=== PATIENT | female | born 1945 | race Caucasian/White ===

== ENCOUNTER → 2017-02-26 | Outpatient (CLI) | payer MEDICARE ==
[2017-02-26 14:03] LABS: Alanine Aminotransfer (ALT/SGP 17 U/L (12-78); Albumin, Blood 3.9 g/dL (3.4-5.0); Alk Phos 111 U/L (50-136); Anion Gap 6 mmol/L (6-16); Aspartate Aminotrans (AST/SGOT 17 U/L (12-37); Bilirubin, Total 0.4 mg/dL (0.1-1.0); Blood Urea Nitrogen 14 mg/dL (8-24); Bun/Creatinine Ratio 25.9 (12.0-20.0); CO2, Blood 29 mmol/L (21-32); Calcium, Blood 9.4 mg/dL (8.5-10.1); Chloride, Blood 105 mmol/L (98-108); Creatinine, Blood 0.54 mg/dL (0.40-1.00); Glomerular Filtration Rate >60 (60-); Glucose, Blood 104 mg/dL (70-99); Potassium, Blood 4.3 mmol/L (3.5-5.5); Sodium, Blood 140 mmol/L (136-145); Total Protein, Blood 7.9 g/dL (6.4-8.2)
[2017-02-26 14:05] LABS: Hematocrit 46.4 % (33.0-51.0); Hemoglobin 15.1 g/dL (11.5-16.0); Mean Corpuscular HGB 30.4 pg (26.0-34.0); Mean Corpuscular HGB Conc 32.5 g/dL (31.5-36.5); Mean Corpuscular Volume 94 fL (80-100); Mean Platelet Volume 10.6 fL (9.1-12.4); Platelet Count 269 K/mm3 (150-400); RDW Coefficient Variation 13.1 % (11.7-14.2); RDW Standard Deviation 44.4 fL (35.1-46.3); Red Blood Cell Count 4.96 M/mm3 (3.80-5.20); White Blood Cell Count 6.97 K/mm3 (4.00-11.30)
== END | disposition home or self-care (01) ==
LOC: LAB 13:36
DX: R60.0 Localized edema (principal)
CPT/HCPCS: 80053; 83880; 85027

== ENCOUNTER 2020-02-03 00:47 | Day surgery (SDC) | payer MEDICARE | END 2020-02-03 23:18 | disposition home or self-care (01) | LOC: WOUND 00:47 | DX: I96 Gangrene, not elsewhere classified (principal); L97.812 Non-pressure chronic ulcer of other part of right lower leg with fat layer exposed; J44.9 Chronic obstructive pulmonary disease, unspecified; I10 Essential (primary) hypertension; J32.9 Chronic sinusitis, unspecified; H74.90 Unspecified disorder of middle ear and mastoid, unspecified ear; D64.9 Anemia, unspecified; G62.9 Polyneuropathy, unspecified; Z88.5 Allergy status to narcotic agent; Z87.891 Personal history of nicotine dependence; Z88.1 Allergy status to other antibiotic agents | CPT/HCPCS: G0463 ==

== ENCOUNTER 2020-02-07 00:56 | Day surgery (SDC) | payer MEDICARE | END 2020-02-07 23:00 | disposition home or self-care (01) | LOC: WOUND 00:56 | DX: S81.801A Unspecified open wound, right lower leg, initial encounter (principal); I96 Gangrene, not elsewhere classified; L97.812 Non-pressure chronic ulcer of other part of right lower leg with fat layer exposed; L03.115 Cellulitis of right lower limb; I87.2 Venous insufficiency (chronic) (peripheral); H74.90 Unspecified disorder of middle ear and mastoid, unspecified ear; D64.9 Anemia, unspecified; J44.9 Chronic obstructive pulmonary disease, unspecified; I10 Essential (primary) hypertension; G62.9 Polyneuropathy, unspecified; Z79.2 Long term (current) use of antibiotics; W01.0XXA Fall on same level from slipping, tripping and stumbling without subsequent striking against object, initial encounter | CPT/HCPCS: 87070; 87075; 87205 ==

== ENCOUNTER 2020-02-14 00:34 | Day surgery (SDC) | payer MEDICARE | END 2020-02-14 22:54 | disposition home or self-care (01) | LOC: WOUND 00:34 | DX: S81.801A Unspecified open wound, right lower leg, initial encounter (principal); I96 Gangrene, not elsewhere classified; L97.812 Non-pressure chronic ulcer of other part of right lower leg with fat layer exposed; I87.2 Venous insufficiency (chronic) (peripheral); L03.115 Cellulitis of right lower limb; J44.9 Chronic obstructive pulmonary disease, unspecified; I10 Essential (primary) hypertension; H74.90 Unspecified disorder of middle ear and mastoid, unspecified ear; D64.9 Anemia, unspecified; G62.9 Polyneuropathy, unspecified; Z79.2 Long term (current) use of antibiotics; Z88.1 Allergy status to other antibiotic agents; Z88.5 Allergy status to narcotic agent; W18.40XA Slipping, tripping and stumbling without falling, unspecified, initial encounter | CPT/HCPCS: 87070; 87075; 87205; G0463 ==

== ENCOUNTER 2020-02-21 00:43 | Day surgery (SDC) | payer MEDICARE | END 2020-02-21 22:47 | disposition home or self-care (01) | LOC: WOUND 00:43 | DX: L97.915 Non-pressure chronic ulcer of unspecified part of right lower leg with muscle involvement without evidence of necrosis (principal); I87.2 Venous insufficiency (chronic) (peripheral); L03.115 Cellulitis of right lower limb; I73.9 Peripheral vascular disease, unspecified; I10 Essential (primary) hypertension; J44.9 Chronic obstructive pulmonary disease, unspecified; D64.9 Anemia, unspecified; I73.00 Raynaud's syndrome without gangrene; G62.9 Polyneuropathy, unspecified ==

== ENCOUNTER 2020-02-28 00:49 | Day surgery (SDC) | payer MEDICARE | END 2020-02-28 22:46 | disposition home or self-care (01) | LOC: WOUND 00:49 | DX: L97.815 Non-pressure chronic ulcer of other part of right lower leg with muscle involvement without evidence of necrosis (principal); I87.2 Venous insufficiency (chronic) (peripheral); I73.9 Peripheral vascular disease, unspecified; L03.115 Cellulitis of right lower limb; I10 Essential (primary) hypertension; J44.9 Chronic obstructive pulmonary disease, unspecified; I73.00 Raynaud's syndrome without gangrene; G62.9 Polyneuropathy, unspecified | CPT/HCPCS: A9270 ==

== ENCOUNTER 2020-03-08 01:34 | Day surgery (SDC) | payer MEDICARE | END 2020-03-08 22:36 | disposition home or self-care (01) | LOC: WOUND 01:34 | DX: L97.915 Non-pressure chronic ulcer of unspecified part of right lower leg with muscle involvement without evidence of necrosis (principal); I87.2 Venous insufficiency (chronic) (peripheral); I73.9 Peripheral vascular disease, unspecified; L03.115 Cellulitis of right lower limb | CPT/HCPCS: 87071; 87075; 87205; A9270 ==

== ENCOUNTER 2020-03-15 00:29 | Day surgery (SDC) | payer MEDICARE | END 2020-03-15 23:23 | disposition home or self-care (01) | LOC: WOUND 00:29 | DX: L97.812 Non-pressure chronic ulcer of other part of right lower leg with fat layer exposed (principal); L03.115 Cellulitis of right lower limb; I87.2 Venous insufficiency (chronic) (peripheral); I73.9 Peripheral vascular disease, unspecified; J44.9 Chronic obstructive pulmonary disease, unspecified; I10 Essential (primary) hypertension; G62.9 Polyneuropathy, unspecified | CPT/HCPCS: A9270 ==

== ENCOUNTER 2020-03-23 02:21 | Day surgery (SDC) | payer MEDICARE | END 2020-03-23 23:45 | disposition home or self-care (01) | LOC: WOUND 02:21 | DX: L97.812 Non-pressure chronic ulcer of other part of right lower leg with fat layer exposed (principal); I87.2 Venous insufficiency (chronic) (peripheral); I73.9 Peripheral vascular disease, unspecified; L03.115 Cellulitis of right lower limb | CPT/HCPCS: A9270 ==

== ENCOUNTER 2020-03-30 02:31 | Day surgery (SDC) | payer MEDICARE | END 2020-03-30 22:41 | disposition home or self-care (01) | LOC: WOUND 02:31 | DX: L97.812 Non-pressure chronic ulcer of other part of right lower leg with fat layer exposed (principal); I87.2 Venous insufficiency (chronic) (peripheral); I73.9 Peripheral vascular disease, unspecified; L03.115 Cellulitis of right lower limb; I10 Essential (primary) hypertension | CPT/HCPCS: A9270 ==

== ENCOUNTER 2020-04-02 09:00 | Day surgery (SDC) | payer MEDICARE | END 2020-04-02 23:56 | disposition home or self-care (01) | LOC: WOUND 09:00 | DX: L97.915 Non-pressure chronic ulcer of unspecified part of right lower leg with muscle involvement without evidence of necrosis (principal); I87.2 Venous insufficiency (chronic) (peripheral); I73.9 Peripheral vascular disease, unspecified; L03.115 Cellulitis of right lower limb; I10 Essential (primary) hypertension ==

== ENCOUNTER 2020-04-06 00:51 | Day surgery (SDC) | payer MEDICARE | END 2020-04-06 23:50 | disposition home or self-care (01) | LOC: WOUND 00:51 | DX: L97.922 Non-pressure chronic ulcer of unspecified part of left lower leg with fat layer exposed (principal); I73.9 Peripheral vascular disease, unspecified; I87.2 Venous insufficiency (chronic) (peripheral); D64.9 Anemia, unspecified; J44.9 Chronic obstructive pulmonary disease, unspecified; I10 Essential (primary) hypertension; I73.00 Raynaud's syndrome without gangrene | CPT/HCPCS: A9270 ==

== ENCOUNTER 2020-04-13 01:56 | Day surgery (SDC) | payer MEDICARE | END 2020-04-13 22:42 | disposition home or self-care (01) | LOC: WOUND 01:56 | DX: L97.915 Non-pressure chronic ulcer of unspecified part of right lower leg with muscle involvement without evidence of necrosis (principal); L03.115 Cellulitis of right lower limb; I87.2 Venous insufficiency (chronic) (peripheral); I73.9 Peripheral vascular disease, unspecified; J44.9 Chronic obstructive pulmonary disease, unspecified; R03.0 Elevated blood-pressure reading, without diagnosis of hypertension | CPT/HCPCS: A9270 ==

== ENCOUNTER 2020-04-20 01:11 | Day surgery (SDC) | payer MEDICARE | END 2020-04-20 22:45 | disposition home or self-care (01) | LOC: WOUND 01:11 | DX: L97.915 Non-pressure chronic ulcer of unspecified part of right lower leg with muscle involvement without evidence of necrosis (principal); L03.115 Cellulitis of right lower limb; I87.2 Venous insufficiency (chronic) (peripheral); I73.9 Peripheral vascular disease, unspecified; J44.9 Chronic obstructive pulmonary disease, unspecified; R03.0 Elevated blood-pressure reading, without diagnosis of hypertension; R21 Rash and other nonspecific skin eruption; Z88.1 Allergy status to other antibiotic agents | CPT/HCPCS: A9270 ==

== ENCOUNTER 2020-04-27 01:00 | Day surgery (SDC) | payer MEDICARE | END 2020-04-27 23:05 | disposition home or self-care (01) | LOC: WOUND 01:00 | DX: L97.815 Non-pressure chronic ulcer of other part of right lower leg with muscle involvement without evidence of necrosis (principal); I87.2 Venous insufficiency (chronic) (peripheral); I73.9 Peripheral vascular disease, unspecified; L03.115 Cellulitis of right lower limb; J44.9 Chronic obstructive pulmonary disease, unspecified; I10 Essential (primary) hypertension | CPT/HCPCS: A9270 ==

== ENCOUNTER 2020-05-04 00:41 | Day surgery (SDC) | payer MEDICARE | END 2020-05-04 22:41 | disposition home or self-care (01) | LOC: WOUND 00:41 | DX: L97.915 Non-pressure chronic ulcer of unspecified part of right lower leg with muscle involvement without evidence of necrosis (principal); I87.2 Venous insufficiency (chronic) (peripheral); I73.9 Peripheral vascular disease, unspecified; L03.115 Cellulitis of right lower limb; J44.9 Chronic obstructive pulmonary disease, unspecified; R03.0 Elevated blood-pressure reading, without diagnosis of hypertension | CPT/HCPCS: A9270 ==

== ENCOUNTER 2020-05-10 00:18 | Day surgery (SDC) | payer MEDICARE | END 2020-05-10 23:33 | disposition home or self-care (01) | LOC: WOUND 00:18 | DX: L97.915 Non-pressure chronic ulcer of unspecified part of right lower leg with muscle involvement without evidence of necrosis (principal); I87.2 Venous insufficiency (chronic) (peripheral); I73.9 Peripheral vascular disease, unspecified; L03.115 Cellulitis of right lower limb; J44.9 Chronic obstructive pulmonary disease, unspecified; I10 Essential (primary) hypertension ==

== ENCOUNTER 2020-05-18 00:35 | Day surgery (SDC) | payer MEDICARE | END 2020-05-18 22:48 | disposition home or self-care (01) | LOC: WOUND 00:35 | DX: L97.815 Non-pressure chronic ulcer of other part of right lower leg with muscle involvement without evidence of necrosis (principal); L03.115 Cellulitis of right lower limb; I87.2 Venous insufficiency (chronic) (peripheral); I73.9 Peripheral vascular disease, unspecified; J44.9 Chronic obstructive pulmonary disease, unspecified; I10 Essential (primary) hypertension | CPT/HCPCS: A9270 ==

== ENCOUNTER 2020-06-01 00:55 | Day surgery (SDC) | payer MEDICARE | END 2020-06-01 23:07 | disposition home or self-care (01) | LOC: WOUND 00:55 | DX: L97.915 Non-pressure chronic ulcer of unspecified part of right lower leg with muscle involvement without evidence of necrosis (principal); I87.2 Venous insufficiency (chronic) (peripheral); I73.9 Peripheral vascular disease, unspecified; L03.115 Cellulitis of right lower limb; J44.9 Chronic obstructive pulmonary disease, unspecified; R03.0 Elevated blood-pressure reading, without diagnosis of hypertension | CPT/HCPCS: A9270 ==

== ENCOUNTER 2020-06-15 01:19 | Day surgery (SDC) | payer MEDICARE | END 2020-06-15 22:36 | disposition home or self-care (01) | LOC: WOUND 01:19 | DX: L97.915 Non-pressure chronic ulcer of unspecified part of right lower leg with muscle involvement without evidence of necrosis (principal); I87.2 Venous insufficiency (chronic) (peripheral); I73.9 Peripheral vascular disease, unspecified; J44.9 Chronic obstructive pulmonary disease, unspecified; I10 Essential (primary) hypertension; I73.00 Raynaud's syndrome without gangrene | CPT/HCPCS: A9270 ==

== ENCOUNTER 2020-06-22 02:10 | Day surgery (SDC) | payer MEDICARE | END 2020-06-22 23:04 | disposition home or self-care (01) | LOC: WOUND 02:10 | DX: S81.801A Unspecified open wound, right lower leg, initial encounter (principal); W10.9XXA Fall (on) (from) unspecified stairs and steps, initial encounter; L97.915 Non-pressure chronic ulcer of unspecified part of right lower leg with muscle involvement without evidence of necrosis; I87.2 Venous insufficiency (chronic) (peripheral); I73.9 Peripheral vascular disease, unspecified; I10 Essential (primary) hypertension; J44.9 Chronic obstructive pulmonary disease, unspecified | CPT/HCPCS: A9270 ==

== ENCOUNTER 2020-06-29 00:51 | Day surgery (SDC) | payer MEDICARE | END 2020-06-29 23:04 | disposition home or self-care (01) | LOC: WOUND 00:51 | DX: L97.915 Non-pressure chronic ulcer of unspecified part of right lower leg with muscle involvement without evidence of necrosis (principal); I87.2 Venous insufficiency (chronic) (peripheral); I73.9 Peripheral vascular disease, unspecified; S81.801D Unspecified open wound, right lower leg, subsequent encounter; X58.XXXD Exposure to other specified factors, subsequent encounter; J44.9 Chronic obstructive pulmonary disease, unspecified; I10 Essential (primary) hypertension | CPT/HCPCS: A9270 ==

== ENCOUNTER 2020-07-06 00:45 | Day surgery (SDC) | payer MEDICARE | END 2020-07-06 22:38 | disposition home or self-care (01) | LOC: WOUND 00:45 | DX: L03.115 Cellulitis of right lower limb (principal); L97.915 Non-pressure chronic ulcer of unspecified part of right lower leg with muscle involvement without evidence of necrosis; L97.912 Non-pressure chronic ulcer of unspecified part of right lower leg with fat layer exposed; I87.2 Venous insufficiency (chronic) (peripheral); I73.9 Peripheral vascular disease, unspecified; J44.9 Chronic obstructive pulmonary disease, unspecified; I10 Essential (primary) hypertension; E11.40 Type 2 diabetes mellitus with diabetic neuropathy, unspecified | CPT/HCPCS: A9270 ==

== ENCOUNTER 2020-07-13 00:58 | Day surgery (SDC) | payer MEDICARE | END 2020-07-13 23:09 | disposition home or self-care (01) | LOC: WOUND 00:58 | DX: L03.115 Cellulitis of right lower limb (principal); L97.812 Non-pressure chronic ulcer of other part of right lower leg with fat layer exposed; L97.815 Non-pressure chronic ulcer of other part of right lower leg with muscle involvement without evidence of necrosis; I73.9 Peripheral vascular disease, unspecified; I87.2 Venous insufficiency (chronic) (peripheral) | CPT/HCPCS: A9270 ==

== ENCOUNTER 2020-07-20 04:36 | Day surgery (SDC) | payer MEDICARE | END 2020-07-20 22:41 | disposition home or self-care (01) | LOC: WOUND 04:36 | DX: L97.812 Non-pressure chronic ulcer of other part of right lower leg with fat layer exposed (principal); L03.115 Cellulitis of right lower limb; I87.2 Venous insufficiency (chronic) (peripheral); I73.9 Peripheral vascular disease, unspecified; I73.00 Raynaud's syndrome without gangrene; G62.9 Polyneuropathy, unspecified; J44.9 Chronic obstructive pulmonary disease, unspecified; I10 Essential (primary) hypertension; Z88.1 Allergy status to other antibiotic agents; Z88.5 Allergy status to narcotic agent | CPT/HCPCS: A9270 ==

== ENCOUNTER 2020-07-27 04:22 | Day surgery (SDC) | payer MEDICARE | END 2020-07-28 00:32 | disposition home or self-care (01) | LOC: WOUND 04:22 | DX: L03.115 Cellulitis of right lower limb (principal); L97.915 Non-pressure chronic ulcer of unspecified part of right lower leg with muscle involvement without evidence of necrosis; L97.912 Non-pressure chronic ulcer of unspecified part of right lower leg with fat layer exposed; I87.2 Venous insufficiency (chronic) (peripheral); I73.9 Peripheral vascular disease, unspecified; I10 Essential (primary) hypertension; J44.9 Chronic obstructive pulmonary disease, unspecified | CPT/HCPCS: A9270 ==

== ENCOUNTER 2020-08-10 02:00 | Day surgery (SDC) | payer MEDICARE | END 2020-08-10 12:00 | disposition home or self-care (01) | LOC: WOUND 02:00 | DX: L97.915 Non-pressure chronic ulcer of unspecified part of right lower leg with muscle involvement without evidence of necrosis (principal); L97.912 Non-pressure chronic ulcer of unspecified part of right lower leg with fat layer exposed; L03.115 Cellulitis of right lower limb; I87.2 Venous insufficiency (chronic) (peripheral); I73.9 Peripheral vascular disease, unspecified | CPT/HCPCS: A9270; G0463 ==

== ENCOUNTER 2020-08-24 00:46 | Day surgery (SDC) | payer MEDICARE | END 2020-08-24 23:01 | disposition home or self-care (01) | LOC: WOUND 00:46 | DX: L97.915 Non-pressure chronic ulcer of unspecified part of right lower leg with muscle involvement without evidence of necrosis (principal); L97.912 Non-pressure chronic ulcer of unspecified part of right lower leg with fat layer exposed; L03.115 Cellulitis of right lower limb; I87.2 Venous insufficiency (chronic) (peripheral); I73.9 Peripheral vascular disease, unspecified; I10 Essential (primary) hypertension; J44.9 Chronic obstructive pulmonary disease, unspecified | CPT/HCPCS: A9270; G0463 ==

== ENCOUNTER 2020-09-07 01:51 | Day surgery (SDC) | payer MEDICARE | END 2020-09-07 12:00 | disposition home or self-care (01) | LOC: WOUND 01:51 | DX: L97.912 Non-pressure chronic ulcer of unspecified part of right lower leg with fat layer exposed (principal); I87.2 Venous insufficiency (chronic) (peripheral); I73.9 Peripheral vascular disease, unspecified; I10 Essential (primary) hypertension; J44.9 Chronic obstructive pulmonary disease, unspecified; Z88.1 Allergy status to other antibiotic agents; Z88.5 Allergy status to narcotic agent | CPT/HCPCS: G0463 ==

== ENCOUNTER 2023-08-22 16:46 | Inpatient (IN) | payer MEDICARE ==
[~2023-08-22] VITALS: Ht 162.6 cm; Wt 107.5 kg
[~2023-08-22 16:46] MED LIST: Sodium Zirconium Cyclosilicate 10 GM Packet PO SCH
[2023-08-22 17:00] LABS: BASOPHILS ABSOLUTE AUTO 0.06 K/mm3 (0.00-0.23); BASOPHILS PERCENT AUTO 0 % (0-2); EOSINOPHILS PERCENT AUTO 0 % (0-6); Hematocrit 50.9 % (33.0-51.0); Hemoglobin 17.3 g/dL (11.5-16.0); IMMATURE GRAN ABSOLUTE AUTO 0.54 K/mm3 (0.00-0.10); IMMATURE GRAN PERCENT AUTO 3 % (0-1); LYMPHOCYTES ABSOLUTE AUTO 0.26 K/mm3 (0.84-5.20); LYMPHOCYTES PERCENT AUTO 1 % (21-46); MONOCYTES ABSOLUTE AUTO 1.09 K/mm3 (0.16-1.47); MONOCYTES PERCENT AUTO 5 % (4-13); Mean Corpuscular HGB 30.2 pg (26.0-34.0); Mean Corpuscular Volume 89 fL (80-100); Mean Platelet Volume 10.2 fL (9.1-12.4); NEUTROPHILS ABSOLUTE AUTO 19.21 K/mm3 (1.96-9.15); NEUTROPHILS PERCENT AUTO 91 % (41-73); Platelet Count 258 K/mm3 (150-400); RDW Coefficient Variation 14.1 % (11.7-14.2); Red Blood Cell Count 5.72 M/mm3 (3.80-5.20); White Blood Cell Count 21.16 K/mm3 (4.00-11.30)
[2023-08-22] MEDS ORDERED: Diphth,Pertuss(Acell),Tet Vac 0.5 ML VIAL IM ONE (17:15)
[2023-08-22] MEDS ORDERED: NS 1,000 ML IV SCH ×2 (17:15→18:20)
[2023-08-22 17:22] LABS: Source, Urine Foley catheter
[2023-08-22 17:34] LABS: Bilirubin, Urine Neg (Neg); Blood, Urine Neg (Neg); Color, Urine Yellow (P-Yellow); Glucose Qualitative, Urine Neg (Neg); Ketones, Urine Neg (Neg); Leukocyte Esterase, Urine Neg (Neg); Nitrite, Urine Neg (Neg); Protein, Urine Neg (Neg); Urobilinogen, Urine NORM (Normal)
[2023-08-22 17:46] LABS: Albumin, Blood 2.6 g/dL (3.4-5.0); Albumin/Globulin Ratio 0.6 (0.8-1.8); Bilirubin, Total 0.5 mg/dL (0.1-1.0); Bun/Creatinine Ratio 61.7 (12.0-20.0); Creatinine, Blood 3.08 mg/dL (0.40-1.00); Globulin, Blood 4.4 g/dL (2.2-4.0); Potassium, Blood 7.3 mmol/L (3.5-5.5)
[2023-08-22 17:55] LABS: Appearance, Urine Hazy (Clear)
[2023-08-22 17:55] LABS: PCO2 Venous 40.3 mmHg (38-42); pH Blood Venous 7.25 (7.34-7.37)
[2023-08-22 17:56] LABS: Red Blood Cells, Urine 0-2 /hpf (0-2); White Blood Cells, Urine 0-2 /hpf (0-5)
[2023-08-22 17:56] LABS: Base Excess Venous -9.8 mmol/L; Bicarbonate Venous 16.9 mmol/L (24.0-30.0)
[2023-08-22 17:57] LABS: Amorphous Light (0-Heavy); Bacteria Mod /hpf; Mucus Light (0-Heavy); Squamous Epithelial Cells Few /hpf (Few)
[2023-08-22 18:33] LABS: U Amphetamine Screen Not Detected; U Barbituate Screen Not Detected; U Benzodiazapine Screen Not Detected; U Buprenorphine Screen Not Detected; U Cannabinoids Screen Not Detected; U Cocaine Screen Not Detected; U Methadone Screen Not Detected; U Methamphetamine Screen Not Detected; U Opiates Screen Not Detected; U Oxycodone Screen Not Detected; U Phencyclidine Screen Not Detected
[2023-08-22] MEDS ORDERED: Azithromycin 250 MG Tab PO ONE (18:35)
[2023-08-22 18:59] LABS: Magnesium, Blood 2.2 mg/dL (1.6-2.4)
[2023-08-22 19:00] LABS: Thyroid Stimulating Hormone 0.948 uIU/mL (0.360-4.800)
[2023-08-22] MEDS ORDERED: Acetaminophen 325 MG TABLET PO PRN (19:40)
[2023-08-22 19:43] LABS: Bun/Creatinine Ratio 67.2 (12.0-20.0); Creatinine, Blood 2.32 mg/dL (0.40-1.00)
[2023-08-22 19:44] LABS: Calcium, Blood 6.6 mg/dL (8.5-10.1); Potassium, Blood 5.1 mmol/L (3.5-5.5)
[2023-08-22] MEDS ORDERED: OxyCODONE HCL 5 MG TAB PO PRN (19:45)
[2023-08-22] MEDS ORDERED: Lactated Ringer's 1,000 ML IV SCH (19:45)
[2023-08-22] MEDS ORDERED: LevoFLOXacin 750 MG/D5W 150ML 150 ML IV SCH (19:55)
[2023-08-22] MEDS ORDERED: Albuterol 2.5 MG/3 ML VIAL INH PRN (20:00)
[2023-08-22] MEDS ORDERED: Sodium Chloride 0.45% 1,000 ML IV SCH (20:25)
[2023-08-22] MEDS ORDERED: Sennosides 8.6 MG Tab PO SCH (21:00)
[2023-08-22 21:24] LABS: Hematocrit 50.6 % (33.0-51.0); Hemoglobin 16.6 g/dL (11.5-16.0)
[2023-08-22 21:25] LABS: Adenovirus Not Detected (NOT DETECT); Bordetella pertussis Not Detected (NOT DETECT); Chlamydophila pneumoniae Not Detected (NOT DETECT); Coronavirus 229E Not Detected (NOT DETECT); Coronavirus HKU1 Not Detected (NOT DETECT); Coronavirus NL63 Not Detected (NOT DETECT); Coronavirus OC43 Not Detected (NOT DETECT); Human Metapneumovirus Not Detected (NOT DETECT); Human Rhinovirus/Enterovirus Detected (NOT DETECT); Influenza A/2009-H1 Not Detected (NOT DETECT); Influenza A/H1 Not Detected (NOT DETECT); Influenza A/H3 Not Detected (NOT DETECT); Influenza B Not Detected (NOT DETECT); Mycoplasma pneumoniae Not Detected (NOT DETECT); Parainfluenza Virus 1 Not Detected (NOT DETECT); Parainfluenza Virus 2 Not Detected (NOT DETECT); Parainfluenza Virus 3 Not Detected (NOT DETECT); Parainfluenza Virus 4 Not Detected (NOT DETECT); Respiratory Syncytial Virus Not Detected (NOT DETECT); SARS-Cov-2 (COVID-19), BioFire Not Detected (NOT DETECT)
[2023-08-22 21:25] LABS: Base Excess Venous -9.4 mmol/L; Bicarbonate Venous 16.7 mmol/L (24.0-30.0); PCO2 Venous 44.2 mmHg (38-42)
[2023-08-22 21:26] LABS: pH Blood Venous 7.22 (7.34-7.37)
[2023-08-22 21:53] VITALS: BP 108/54
[2023-08-22 22:06] LABS: Bun/Creatinine Ratio 62.6 (12.0-20.0); Creatinine, Blood 2.97 mg/dL (0.40-1.00); Potassium, Blood 6.7 mmol/L (3.5-5.5)
[2023-08-22 22:07] LABS: Calcium, Blood 8.9 mg/dL (8.5-10.1)
[2023-08-22] MEDS ORDERED: Sodium Bicarb 8.4% 1 MEQ/ML 50 ML Vial IV ONE ×2 (22:15→23:00)
[2023-08-22] MEDS ORDERED: Sodium Zirconium Cyclosilicate 10 GM Packet PO SCH (22:45)
[2023-08-22] MEDS ORDERED: CALCIUM GLUC IN NACL, ISO-OSM 50 ML IV ONE (22:50)
[2023-08-22] MEDS ORDERED: FentaNYL Citrate 50 MCG/ML 2 ML Injection IV PRN (22:50)
[2023-08-22] MEDS ORDERED: Insulin Regular 100 UNIT/ML 10ML Vial IV ONE (23:00)
[2023-08-22] MEDS ORDERED: Dextrose 50% 50 ML Syringe IV ONE (23:00)
[2023-08-22] MEDS ORDERED: Sodium Zirconium Cyclosilicate 10 GM Packet PO ONE (23:00)
[2023-08-22] MEDS ORDERED: Sodium Bicarb 8.4% Inj 100 MEQ in Sodium Chloride 0.45% 1,000 ML IV ONE (23:05)
[2023-08-22 23:28] VITALS: BP 102/55
[2023-08-22] MEDS ORDERED: Albumin (Human) 25gm/100ml 100 ML IV ONE (23:30)
[2023-08-22 23:45] LABS: Bun/Creatinine Ratio 61.7 (12.0-20.0); Calcium, Blood 8.9 mg/dL (8.5-10.1); Creatinine, Blood 2.95 mg/dL (0.40-1.00); Potassium, Blood 6.6 mmol/L (3.5-5.5)
[2023-08-23 00:41] LABS: Bicarbonate Venous 16.9 mmol/L (24.0-30.0); PCO2 Venous 51.2 mmHg (38-42); pH Blood Venous 7.19 (7.34-7.37)
[2023-08-23 00:42] LABS: Base Excess Venous -8.4 mmol/L
[2023-08-23 01:19] LABS: Bun/Creatinine Ratio 65.5 (12.0-20.0); Calcium, Blood 9.1 mg/dL (8.5-10.1); Creatinine, Blood 2.84 mg/dL (0.40-1.00); Potassium, Blood 6.5 mmol/L (3.5-5.5)
[2023-08-23 02:28] LABS: BASOPHILS ABSOLUTE AUTO 0.05 K/mm3 (0.00-0.23); BASOPHILS PERCENT AUTO 0 % (0-2); EOSINOPHILS ABSOLUTE AUTO 0.01 K/mm3 (0.00-0.68); EOSINOPHILS PERCENT AUTO 0 % (0-6); Hematocrit 45.9 % (33.0-51.0); Hemoglobin 15.5 g/dL (11.5-16.0); IMMATURE GRAN ABSOLUTE AUTO 0.58 K/mm3 (0.00-0.10); IMMATURE GRAN PERCENT AUTO 3 % (0-1); LYMPHOCYTES ABSOLUTE AUTO 0.57 K/mm3 (0.84-5.20); LYMPHOCYTES PERCENT AUTO 3 % (21-46); MONOCYTES ABSOLUTE AUTO 1.64 K/mm3 (0.16-1.47); MONOCYTES PERCENT AUTO 8 % (4-13); Mean Corpuscular HGB 30.5 pg (26.0-34.0); Mean Corpuscular HGB Conc 33.8 g/dL (31.5-36.5); Mean Corpuscular Volume 90 fL (80-100); Mean Platelet Volume 10.2 fL (9.1-12.4); NEUTROPHILS ABSOLUTE AUTO 17.05 K/mm3 (1.96-9.15); NEUTROPHILS PERCENT AUTO 86 % (41-73); Platelet Count 192 K/mm3 (150-400); RDW Standard Deviation 46.7 fL (35.1-46.3); Red Blood Cell Count 5.09 M/mm3 (3.80-5.20)
[2023-08-23 02:47] LABS: Magnesium, Blood 2.7 mg/dL (1.6-2.4)
[2023-08-23 03:13] LABS: Albumin/Globulin Ratio 0.8 (0.8-1.8); Bilirubin, Total 0.5 mg/dL (0.1-1.0); Calcium, Blood 8.9 mg/dL (8.5-10.1); Creatinine, Blood 2.74 mg/dL (0.40-1.00); Globulin, Blood 3.6 g/dL (2.2-4.0); Potassium, Blood 5.9 mmol/L (3.5-5.5); Total Protein, Blood 6.6 g/dL (6.4-8.2)
[2023-08-23 03:17] VITALS: BP 105/79
--- NOTE | 2023-08-23 04:38 | NUR ---
SHIFT SUMMARY SHIFT SUMMARY PT A&O X4, ABLE TO MAKE NEEDS KNOWN. PT IS UNMOTIVATED WITH CARE AND REQUIRES FREQUENT EDUCATION. SHE ARRIVED TO PCU 9 FROM ED AT APPROXIMATELY 2104. PT SLID TO HOSPITAL BED. WOUNDS TO BLE AND REDNESS OF GROIN. PICTURES TAKEN FOR CHART. PT WITH CRITICAL POTASSIUM AND VBG, ADMINISTERED INSULIN, D50, CALCIUM GLUCONATE, LOKELMA, AND BICARB DRIP PER EMAR. PT ON BIPAP DUE TO RESPIRATORY ACIDOSIS, SHE IS TOLERATING THIS WELL. VITALS HAVE BEEN STABLE, AFEBRILE, LUNGS DIMINISHED IN THE BASES, TELE SHOWS ST/SR WITH SHORT RUN OF SVT WITH HR IN 160'S THIS AM. PT DENIES CP OR SOB. BROOKS IN PLACE DRAINING YELLOW URINE TO GRAVITY. PT IS RESTING IN BED, CALL LIGHT IN REACH, BREATHING EVEN AND UNLABORED.
[2023-08-23 07:22] VITALS: BP 117/69
[2023-08-23 08:57] LABS: Bun/Creatinine Ratio 72.9 (12.0-20.0); Calcium, Blood 8.9 mg/dL (8.5-10.1); Creatinine, Blood 2.21 mg/dL (0.40-1.00); Potassium, Blood 5.6 mmol/L (3.5-5.5)
[2023-08-23] MEDS ORDERED: Heparin Sodium,Porcine 5,000 UNIT/0.5 ML SDV SC SCH (09:00)
[2023-08-23] MEDS ORDERED: NS 1,000 ML IV SCH ×2 (11:00→11:05)
[2023-08-23] MEDS ORDERED: NS 1,000 ML IV ONE (11:00)
[2023-08-23 11:35] VITALS: BP 116/79
[2023-08-23 13:21] LABS: pH Blood Venous 7.28 (7.34-7.37)
[2023-08-23 13:22] LABS: Bicarbonate Venous 12.4 mmol/L (24.0-30.0); PCO2 Venous 21.1 mmHg (38-42)
[2023-08-23 15:04] LABS: Hematocrit 43.3 % (33.0-51.0); Hemoglobin 14.4 g/dL (11.5-16.0)
[2023-08-23 15:24] LABS: Bun/Creatinine Ratio 71.2 (12.0-20.0); Calcium, Blood 8.2 mg/dL (8.5-10.1); Creatinine, Blood 1.91 mg/dL (0.40-1.00); Potassium, Blood 4.6 mmol/L (3.5-5.5)
[2023-08-23 16:22] VITALS: BP 124/72
--- NOTE | 2023-08-23 17:59 | NUR ---
SHIFT SUMMARY PATIENT ALERT, ORIENTED x3-4. PATIENT MORE ALERT AFTER FAMILY ARRIVED AT BEDSIDE. PATIENT WAS LETHARGIC THIS MORNING ON THE BIPAP BUT PATIENT HAS SINCE PERKED UP SINCE FAMILY ARRIVED. ON TELE READING ST, BP STABLE. RECTAL TEMP PLACED D/T LOW TEMPERATURE THIS MORNING, CORE TEMP LOW 96.6. PATIENT TOLERATING RA WHILE OFF BIPAP, SPO2 >90%. BROOKS IN PLACE DRAINING YELLOW URINE TO GRAVITY. PATIENT WITH CELLULITIS TO LOWER EXTRMITIES. PATIENT ATTEMPTED TO WORK WITH PT TODAY, PATIENT HAS THERAPY RECOMMENDATIONS AT BEDSIDE. TOLERATING PO. POWERGLIDE PLACED TODAY. NO OTHER CHANGES DURING THE DAY, WILL REPORT TO NETSUITE CONSULTANT RN.
[2023-08-23 19:18] VITALS: BP 119/55
[2023-08-23 20:32] LABS: pH Blood Venous 7.21 (7.34-7.37)
[2023-08-23 20:33] LABS: Base Excess Venous -2.4 mmol/L; Bicarbonate Venous 20.7 mmol/L (24.0-30.0); PCO2 Venous 63.1 mmHg (38-42)
--- NOTE | 2023-08-23 21:50 | NUR ---
ASSUMPTION OF CARE AFTER RECEIVING REPORT FROM DESTINY RN, THIS RN ASSUMED CARE AT APPROX 1915. PATIENT ALERT AND ORIENTED X3-4. IS [place]. PERRLA. MOVES ALL EXTREMITIES EQUALLY WITH WEAKNESS TO BLE. DENIES PAIN TO BLE WOUNDS OR ANYWHERE ELSE. TELEMETRY SHOWING SINUS 90s. BP STABLE. DENIES CHEST PAIN, PRESSURE. ON 3L VIA NC, SATs >90%. MD PIERRE CONTACTED TO DISCUSS NEED FOR REPEAT VBG DUE TO LITTLE PH CHANGE WITH BIPAP USE LAST NIGHT. POSSIBLE NEED TO ADJUST SETTINGS OF BIPAP. ORDERED, VBG OBTAINED - CRITICAL PH OF 7.21. MD PIERRE AWARE. PATIENT TOLERATING BIPAP, SATs >90%. BROOKS CATHETER IN PLACE DRAINING YELLOW URINE TO GRAVITY. CALL LIGHT IN REACH.
[2023-08-23 23:19] VITALS: BP 104/64
[2023-08-24] VITALS (35 sets, daily range): BP systolic 78–124; BP diastolic 44–94
[2023-08-24 03:46] LABS: BASOPHILS ABSOLUTE AUTO 0.02 K/mm3 (0.00-0.23); BASOPHILS PERCENT AUTO 0 % (0-2); EOSINOPHILS ABSOLUTE AUTO 0.07 K/mm3 (0.00-0.68); EOSINOPHILS PERCENT AUTO 1 % (0-6); Hematocrit 44.6 % (33.0-51.0); Hemoglobin 14.4 g/dL (11.5-16.0); IMMATURE GRAN ABSOLUTE AUTO 0.18 K/mm3 (0.00-0.10); IMMATURE GRAN PERCENT AUTO 1 % (0-1); LYMPHOCYTES ABSOLUTE AUTO 0.36 K/mm3 (0.84-5.20); LYMPHOCYTES PERCENT AUTO 3 % (21-46); MONOCYTES ABSOLUTE AUTO 1.05 K/mm3 (0.16-1.47); MONOCYTES PERCENT AUTO 8 % (4-13); Mean Corpuscular HGB 29.8 pg (26.0-34.0); Mean Corpuscular HGB Conc 32.3 g/dL (31.5-36.5); Mean Corpuscular Volume 92 fL (80-100); Mean Platelet Volume 9.6 fL (9.1-12.4); NEUTROPHILS ABSOLUTE AUTO 11.42 K/mm3 (1.96-9.15); NEUTROPHILS PERCENT AUTO 87 % (41-73); Platelet Count 166 K/mm3 (150-400); RDW Coefficient Variation 14.4 % (11.7-14.2); RDW Standard Deviation 48.9 fL (35.1-46.3); Red Blood Cell Count 4.83 M/mm3 (3.80-5.20)
[2023-08-24 04:04] LABS: Bun/Creatinine Ratio 71.1 (12.0-20.0); Calcium, Blood 8.2 mg/dL (8.5-10.1); Creatinine, Blood 1.52 mg/dL (0.40-1.00); Potassium, Blood 4.3 mmol/L (3.5-5.5)
--- NOTE | 2023-08-24 04:21 | NUR ---
SHIFT SUMMARY NO ACUTE EVENTS SINCE ASSUMPTION OF CARE. PATIENT SLEPT THROUGHOUT NIGHT, EASILY AROUSABLE WITH VERBAL STIMULI. TELEMETRY SHOWING SINUS 90s. X1 SHORT RUN OF SVT 140s-150s. PATIENT ASYMPTOMATIC, SLEEPING DURING EVENT. NO FURTHER EVENTS. BP STABLE. TOLERATING BIPAP WITH 2-3L BLEED IN THROUGHOUT NIGHT, SATs >90%. TOLERATES 2-3L VIA NC WHILE AWAKE. BROOKS CATHETER IN PLACE, DRAINING YELLOW URINE TO GRAVITY. REPOSITIONING T/O NIGHT. CALL LIGHT IN REACH. WILL CONTINUE TO MONITOR AND REPORT TO ONCOMING RN.
[2023-08-24 08:13] LABS: Base Excess Venous -1.2 mmol/L; Bicarbonate Venous 22.5 mmol/L (24.0-30.0); PCO2 Venous 52 mmHg (38-42)
--- NOTE | 2023-08-24 09:05 | NUR ---
UPDATE THIS RN COVERING PRIMARY RN BREAK. CENTRAL SUPPLY CLERK CALLED TO NOTIFY OF CONVERSION TO AFIB WITH HR 140-150'S. DR. ALLEN NOTIFIED. BP STABLE. PT PLACED ON 2L NC FOR SOB. NEW ORDERS PROVIDED
[2023-08-24] MEDS ORDERED: Diltiazem HCl 5 MG / ML 5ML Vial IV STA ×3 (09:07→09:51)
[2023-08-24] MEDS ORDERED: Lactated Ringer's 500 ML IV ONE (10:25)
[2023-08-24] MEDS ORDERED: Metoprolol Tartrate 1 MG/ML 5 ML VIAL IV PRN (10:30)
[2023-08-24 11:15] LABS: Magnesium, Blood 2.3 mg/dL (1.6-2.4); Thyroid Stimulating Hormone 0.327 uIU/mL (0.360-4.800)
[2023-08-24] MEDS ORDERED: Metoprolol Tartrate 25 MG Tab PO SCH (12:00)
--- NOTE | 2023-08-24 12:52 | NUR ---
UPDATE FOR CONVERSION TO AFIB PT WAS GIVEN 25MG DILTIAZEM IVP W/NO SUSTAINED IMPROVEMENT TO HR. PT WAS THEN GIVEN 5MG METOPROLOL IVP x3, HR TRENDED DOWN TO AND SUSTAINED 110s, THEN PT CONVERTED BACK TO SINUS RHYTHM AT 1126. PROVIDER AT BEDSIDE FREQUENTLY OVER THE COURSE OF MEDICATION ADMINISTRATIONS AND HAS BEEN UPDATED ON CONVERSION BACK TO SINUS RHYTHM. EKG COMPLETED AT BEDSIDE AND PLACED IN CHART. ECHO HAS BEEN ORDERED AND IS PENDING. AT THIS TIME, PT IS RESTING IN BED, NADN, VISITORS AT BEDSIDE.
[2023-08-24 16:51] LABS: Free Thyroxine 1.41 ng/dL (0.70-1.60)
[2023-08-24 16:54] LABS: Triiodothyronine, Free 1.65 pg/mL (2.18-3.98)
--- NOTE | 2023-08-24 18:27 | NUR ---
SHIFT SUMMARY: PT HAS BEEN A&Ox4, EVASIVE WITH ANSWERS WHEN ASKED ABOUT HER HISTORY, CURRENT LIVING SITUATION AND WHY SHE ISN'T ABLE TO GET HERSELF TO APPOINTMENTS. PT's DAUGHTER STATES THAT THE PT LIVES ABOUT 90min FROM [place] AND HAS BEEN RESISTANT TO FAMILY HELPING HER OR "TELLING HER HOW TO LIVE". PT DOES HAVE A COUSIN WHO HAS BEEN TEMPORARILY LIVING WITH HER, BUT THIS COUSIN WILL BE GOING HOME THIS WEEK AND UNABLE TO HELP CARE FOR THE PT IF SHE WERE TO DISCHARGE HOME. PT REPORTS HAVING MULTIPLE FALLS AT HOME DUE TO WEAKNESS, STATES SHE HASN'T BEEN COOKING FOR HERSELF BECAUSE SHE HASN'T BEEN ABLE TO STAND FOR LONG PERIODS. PT HAS BEEN COMFORTABLE AT REST BUT VERY PAINFUL WITH ANY MOVEMENT/TOUCH TO HER BLE. PT DENIES SOB/CP, HAS MAINTAINED O2 SATS >93% ON 2 L/MIN, HAS BEEN SR SINCE CONVERSION AT 1126. EKG AND ECHO COMPLETED AT BEDSIDE, PT TO/FROM IMG DEPT FOR CT PE STUDY W/RESULTS PENDING. INDWELLING BROOKS PATENT, DRAINING TO GRAVITY. EXTENSIVE WOUNDS TO BLE, WOUND CARE COMPLETED THIS SHIFT AND OPEN TO AIR. PT RESTING IN ROOM W/CALL LIGHT IN REACH. WILL CONTINUE TO MONITOR AND TREAT ACCORDINGLY UNTIL CHANGE OF SHIFT.
[2023-08-24 19:45] LABS: Bicarbonate Venous 21.1 mmol/L (24.0-30.0); PCO2 Venous 63.5 mmHg (38-42); pH Blood Venous 7.21 (7.34-7.37)
[2023-08-24 19:46] LABS: Base Excess Venous -2.7 mmol/L
[2023-08-24 20:14] LABS: Anti-Xa UFH, PHA Monitoring <0.10 IU/mL; International Normalized Ratio 0.99; Prothrombin Time Results 10.6 Sec (9.7-11.5)
[2023-08-24] MEDS ORDERED: Heparin Sodium,Porcine/0.5 NS 500 ML IV SCH (20:30)
[2023-08-24] MEDS ORDERED: Heparin Sodium 5000 Units/ML 1ML MDV IV ONE (20:30)
--- NOTE | 2023-08-24 21:58 | NUR ---
ASSUMPTION OF CARE AFTER RECEIVING REPORT FROM GEENA RN, THIS RN ASSUMED CARE AT APPROX 1915. PATIENT ALERT AND ORIENTED X4. FLAT AFFECTIVE, UNRECEPTIVE TO EDUCATION. TELEMETRY SHOWING SINUS 80s. SCHEDULED PO METOPROLOL ADMINISTERED PER EMAR. BP SOFT FOLLOWING ADMINISTRATION, SBP 90s-100s. MAP >65. DENIES CHEST PAIN, PRESSURE. HEPARIN GTT STARTED. ON ROOM AIR TO 2L VIA NC WHILE AWAKE. PLACED ON BIPAP WITH 2L BLEED IN REPEAT VBG PH CRITICAL AT 7.21, CO2 ELEVATED 63.5. TOLERATING WELL. SATs >90%. BROOKS CATHETER IN PLACE, DRAINING YELLOW URINE TO GRAVITY. WOUNDS TO BLE, GROIN/FOLDS. Q2H REPOSITIONING. CALL LIGHT IN REACH.
[2023-08-25] VITALS (11 sets, daily range): BP systolic 98–125; BP diastolic 52–78
[2023-08-25 03:54] LABS: BASOPHILS ABSOLUTE AUTO 0.04 K/mm3 (0.00-0.23); BASOPHILS PERCENT AUTO 0 % (0-2); EOSINOPHILS ABSOLUTE AUTO 0.26 K/mm3 (0.00-0.68); EOSINOPHILS PERCENT AUTO 2 % (0-6); Hematocrit 44.1 % (33.0-51.0); IMMATURE GRAN ABSOLUTE AUTO 0.29 K/mm3 (0.00-0.10); IMMATURE GRAN PERCENT AUTO 2 % (0-1); LYMPHOCYTES ABSOLUTE AUTO 0.53 K/mm3 (0.84-5.20); LYMPHOCYTES PERCENT AUTO 3 % (21-46); MONOCYTES ABSOLUTE AUTO 1.06 K/mm3 (0.16-1.47); MONOCYTES PERCENT AUTO 7 % (4-13); Mean Corpuscular HGB 30.1 pg (26.0-34.0); Mean Corpuscular HGB Conc 31.7 g/dL (31.5-36.5); Mean Corpuscular Volume 95 fL (80-100); Mean Platelet Volume 9.9 fL (9.1-12.4); NEUTROPHILS ABSOLUTE AUTO 13.58 K/mm3 (1.96-9.15); NEUTROPHILS PERCENT AUTO 86 % (41-73); Platelet Count 167 K/mm3 (150-400); RDW Coefficient Variation 14.8 % (11.7-14.2); RDW Standard Deviation 51.8 fL (35.1-46.3); Red Blood Cell Count 4.65 M/mm3 (3.80-5.20); White Blood Cell Count 15.76 K/mm3 (4.00-11.30)
--- NOTE | 2023-08-25 05:26 | NUR ---
SHIFT SUMMARY NO ACUTE EVENTS OVERNIGHT. PATIENT SLEPT T/O, IS EASILY AROUSABLE WITH VERBAL STIMULI. TELEMETRY SHOWING SINUS 80s. BP STABLE, SBP 90s-110s. MAP >65. DENIES CHEST PAIN, PRESSURE. HEPARIN GTT INFUSING PER EMAR. TOLERATED USE OF BIPAP ON AND OFF T/O NIGHT. SATs >90%. TACHYPNEA AT REST, RR 22-26. CURRENTLY ON 2L VIA NC. ADMINISTERED PO TYLENOL FOR 6/10 BLE PAIN WITH REPORTED RELIEF. BROOKS CATHETER IN PLACE DRAINING YELLOW URINE TO GRAVITY. Q2H REPOSITIONING. CALL LIGHT IN REACH. WILL CONTINUE TO MONITOR AND REPORT TO ONCOMING RN.
[2023-08-25 05:49] LABS: Albumin, Blood 2.2 g/dL (3.4-5.0); Anion Gap 9 mmol/L (3-11); Blood Urea Nitrogen 86 mg/dL (8-24); Bun/Creatinine Ratio 58.1 (12.0-20.0); CO2, Blood 27 mmol/L (21-32); Calcium, Blood 8.9 mg/dL (8.5-10.1); Chloride, Blood 109 mmol/L (98-108); Creatinine, Blood 1.48 mg/dL (0.40-1.00); Glomerular Filtration Rate 36 (60-); Glucose, Blood 110 mg/dL (70-99); Phosphorus, Blood 3.2 mg/dL (2.5-4.9); Potassium, Blood 4.8 mmol/L (3.5-5.5); Sodium, Blood 140 mmol/L (136-145)
[2023-08-25] MEDS ORDERED: Dose Adjust by Pharmacy XX STA ×3 (05:57→20:11)
[2023-08-25 08:59] LABS: Base Excess Venous -1.4 mmol/L; Bicarbonate Venous 22.1 mmol/L (24.0-30.0); PCO2 Venous 59.6 mmHg (38-42); pH Blood Venous 7.25 (7.34-7.37)
[2023-08-25] MEDS ORDERED: OxyCODONE HCL 5 MG TAB PO PRN (09:30)
[2023-08-25] MEDS ORDERED: Arginine/Glutamine/Calcium Hmb 1 Packet PO SCH (10:00)
[2023-08-25] MEDS ORDERED: Medihoney Topical 44 ML TOP SCH (13:00)
[2023-08-26] VITALS (8 sets, daily range): BP systolic 105–148; BP diastolic 51–95
--- NOTE | 2023-08-26 05:10 | NUR ---
SHIFT SUMMARY PT A&O X3, ABLE TO MAKE NEEDS KNOWN. PT CONTINUES TO BE UNMOTIVATED WITH CARES AND REQUIRES FREQUENT EDUCATION. AMIO GTT AND HEPARIN GTT INFUSING PER EMAR. VITALS HAVE BEEN STABLE, AFEBRILE, LUNGS WITH CRACKLES T/O, SPO2 >90% 4L NC, HR 90'S-110'S. PT DENIES CP OR SOB. BROOKS IN PLACE DRAINING YELLOW URINE TO GRAVITY. BLE WOUNDS HAVE DRESSINGS THAT ARE C/D/I.PT IS RESTING IN BED, CALL LIGHT IN REACH, BREATHING EVEN AND UNLABORED.
[2023-08-26 07:42] LABS: BASOPHILS ABSOLUTE AUTO 0.07 K/mm3 (0.00-0.23); BASOPHILS PERCENT AUTO 0 % (0-2); EOSINOPHILS ABSOLUTE AUTO 0.23 K/mm3 (0.00-0.68); EOSINOPHILS PERCENT AUTO 1 % (0-6); Hematocrit 46.6 % (33.0-51.0); Hemoglobin 14.2 g/dL (11.5-16.0); IMMATURE GRAN ABSOLUTE AUTO 0.33 K/mm3 (0.00-0.10); IMMATURE GRAN PERCENT AUTO 2 % (0-1); LYMPHOCYTES ABSOLUTE AUTO 0.81 K/mm3 (0.84-5.20); LYMPHOCYTES PERCENT AUTO 4 % (21-46); MONOCYTES ABSOLUTE AUTO 1.47 K/mm3 (0.16-1.47); MONOCYTES PERCENT AUTO 8 % (4-13); Mean Corpuscular HGB 30.2 pg (26.0-34.0); Mean Corpuscular HGB Conc 30.5 g/dL (31.5-36.5); Mean Corpuscular Volume 99 fL (80-100); Mean Platelet Volume 9.8 fL (9.1-12.4); NEUTROPHILS ABSOLUTE AUTO 16.23 K/mm3 (1.96-9.15); NEUTROPHILS PERCENT AUTO 85 % (41-73); Platelet Count 154 K/mm3 (150-400); RDW Coefficient Variation 14.8 % (11.7-14.2); RDW Standard Deviation 55.1 fL (35.1-46.3); White Blood Cell Count 19.14 K/mm3 (4.00-11.30)
[2023-08-26] MEDS ORDERED: Lactobacil 2-S.Thermo-Bifido 1 1 Cap PO SCH (09:00)
--- NOTE | 2023-08-26 10:03 | NUR ---
Pt is alert, oriented x 4 this morning. She has significant hearing loss, since childhood, and does not own hearing aids. Bedside report received from JOE Rebollar. Verified amiodarone and heparin gtts. Bilateral midline IV sites are WNL. Able to get blood flash, but not enough for lab draw. Pt is still requiring at least 2 l/min of O2 to keep spo2 greater than 90. States that her breathing is feeling better. She still has some tachypnea at rest. Vital signs are stable. sinus rhythm 90 bpm noted by telemetry. Per [employer] pt was in afib yesterday [id number], since then sinus rhythm. Blanca catheter was dc'd at this time. Pt states she does not have urinary incontinence at baseline. BSC, bariatric non skid socks and geriwalker placed at bedside for toileting. Wounds BLE noted clean, dry and intact. Legs elevated on pillows to prevent pressure on her heels. Pt was also encouraged to shift her position in bed frequently, at least once an hour while awake, to prevent pressure sores. She verbalized understanding.
[2023-08-26] MEDS ORDERED: Apixaban 5 MG Tab PO SCH (13:09)
--- NOTE | 2023-08-26 13:52 | NUR ---
HEPARIN DC'D, ELIQUIS TAKEN BY PT.
--- NOTE | 2023-08-26 15:33 | NUR ---
Pt needed to void after missy was sunday'd. Three person max assist to stand and pivot to the [facility]. Geriwalker and gait belt in use. Pt voided and was assisted back to bed. Noted dressings on both lower legs were soiled, bleeding noted on the left leg. Dressings removed, standard hospital issue wound cleanser spray was used and open areas were cleansed with gauze and the spray. Wounds were covered paste as ordered in wound care order, covered with alginate sqaure and maxabsorb bandage, secured with kerlix and coban wrap. Pt assisted to right lying position and she stated she was fairly comfortable. She said she wanted to nap. appears to be resting quietly, with eyes closed at this time. Call light within reach.
--- NOTE | 2023-08-26 17:22 | NUR ---
WHILE napping the pt's spo2 dropped to 86% while getting 2 l/min by n.c. Applied the bipap mask with 2 l/min O2 bleed in and spo2 improved 96% while pt continued napping.
--- NOTE | 2023-08-26 17:23 | NUR ---
Heart rate 102 bpm, sinus tachycardia.
--- NOTE | 2023-08-26 18:35 | NUR ---
Daughter was here this evening. States that the patient has been saying since 2014 that she wanted to , when she lost her son. Soon after she also had the loss of her mother and her . Daughter says that pt has been refusing care for quite some time now. The pt did work with PT today, but did not cooperate to work with OT, per Huber the Occupational therapist today. Pt was assisted twice OOB to [facility] this afternoon, and she voided each time; however, this was a max 2-3 person assist and the pt had tachycardia, dyspnea and weakness. She is not strongly motivated to get OOB, and state she does not want anything that is painful. She had only had a fair appetite today. Bladder scan post void was 108 cc. She is requiring at least 2 l/min of O2 while awake, both at rest and with activity.
[2023-08-26] MEDS ORDERED: Doxycycline Hyclate 100 MG TAB PO SCH (21:00)
[2023-08-26] MEDS ORDERED: Amiodarone HCl 200 MG Tab PO SCH (21:00)
[2023-08-27 03:31] LABS: BASOPHILS ABSOLUTE AUTO 0.05 K/mm3 (0.00-0.23); BASOPHILS PERCENT AUTO 0 % (0-2); EOSINOPHILS PERCENT AUTO 2 % (0-6); Hemoglobin 13.4 g/dL (11.5-16.0); IMMATURE GRAN ABSOLUTE AUTO 0.42 K/mm3 (0.00-0.10); IMMATURE GRAN PERCENT AUTO 3 % (0-1); LYMPHOCYTES ABSOLUTE AUTO 0.56 K/mm3 (0.84-5.20); LYMPHOCYTES PERCENT AUTO 3 % (21-46); MONOCYTES ABSOLUTE AUTO 0.91 K/mm3 (0.16-1.47); MONOCYTES PERCENT AUTO 5 % (4-13); Mean Corpuscular HGB Conc 31.2 g/dL (31.5-36.5); Mean Corpuscular Volume 96 fL (80-100); Mean Platelet Volume 9.8 fL (9.1-12.4); NEUTROPHILS ABSOLUTE AUTO 14.47 K/mm3 (1.96-9.15); NEUTROPHILS PERCENT AUTO 86 % (41-73); Platelet Count 172 K/mm3 (150-400); RDW Coefficient Variation 15.1 % (11.7-14.2); RDW Standard Deviation 53.7 fL (35.1-46.3); Red Blood Cell Count 4.46 M/mm3 (3.80-5.20); White Blood Cell Count 16.81 K/mm3 (4.00-11.30)
[2023-08-27 03:43] VITALS: BP 103/55
[2023-08-27 03:48] LABS: Albumin, Blood 1.8 g/dL (3.4-5.0); Anion Gap 8 mmol/L (3-11); Blood Urea Nitrogen 63 mg/dL (8-24); Bun/Creatinine Ratio 48.8 (12.0-20.0); CO2, Blood 28 mmol/L (21-32); Calcium, Blood 9.1 mg/dL (8.5-10.1); Chloride, Blood 114 mmol/L (98-108); Creatinine, Blood 1.29 mg/dL (0.40-1.00); Glomerular Filtration Rate 43 (60-); Glucose, Blood 109 mg/dL (70-99); Magnesium, Blood 1.9 mg/dL (1.6-2.4); Phosphorus, Blood 2.6 mg/dL (2.5-4.9); Potassium, Blood 5.2 mmol/L (3.5-5.5); Sodium, Blood 145 mmol/L (136-145)
--- NOTE | 2023-08-27 05:14 | NUR ---
SHIFT SUMMARY PT A&O X3, ABLE TO MAKE NEEDS KNOWN. PT CONTINUES TO BE UNMOTIVATED WITH CARES. VITALS HAVE BEEN STABLE, AFEBRILE. SPO2 >90% 4L NC, HR 80'S-110'S. PT DENIES CP OR SOB. PW IN PLACE DRAINING YELLOW URINE. BLE WOUNDS HAVE DRESSINGS THAT ARE C/D/I.PT IS RESTING IN BED, CALL LIGHT IN REACH, BREATHING EVEN AND UNLABORED.
[2023-08-27 07:37] VITALS: BP 114/66
--- NOTE | 2023-08-27 07:52 | NUR ---
Call to Palliative care at this time, left a message to request pt visit.
--- NOTE | 2023-08-27 09:12 | NUR ---
Pt working with PT at this time
--- NOTE | 2023-08-27 13:08 | NUR ---
pt appears to be sleeping comfortably on her right side.
--- NOTE | 2023-08-27 13:34 | NUR ---
Pt said that she needed to toilet. Given option of bedpan or BSC. She could not decide, said she left it up to staff. Voided on bedpan, no BM. Bedbath given, tolerates repositioning poorly, yelling out with movement, and pushing against railings. She is agreeable to attempt the activity, but does not seem to tolerate it well. Encouraged pt participation, but she does not make attempts to move herself nor to assist staff in her own personal care. She seems very tired and is painful with activity, denies pain at rest. Refused her breakfast and lunch this morning.
[2023-08-27 15:30] VITALS: BP 114/69
[2023-08-27 19:33] VITALS: BP 101/59
[2023-08-27 20:26] VITALS: BP 106/69
[2023-08-27 23:49] VITALS: BP 125/67
[2023-08-28 03:25] VITALS: BP 118/67
--- NOTE | 2023-08-28 05:55 | NUR ---
SHIFT SUMMARY PT A&O X3, ABLE TO MAKE NEEDS KNOWN. PT CONTINUES TO BE UNMOTIVATED WITH CARES. PLAN IS FOR D/C TO HOSPICE. VITALS HAVE BEEN STABLE, AFEBRILE. SPO2 >90% 2-4L NC. PT DENIES CP OR SOB. PW IN PLACE DRAINING YELLOW URINE. BLE WOUNDS HAVE DRESSINGS THAT ARE C/D/I.PT IS RESTING IN BED, CALL LIGHT IN REACH, BREATHING EVEN AND UNLABORED.
[2023-08-28 07:55] VITALS: BP 130/77
[2023-08-28] MEDS ORDERED: Metoprolol Succinate 50 MG TABCR PO SCH (09:00)
[2023-08-28 15:13] VITALS: BP 126/80
--- NOTE | 2023-08-28 17:55 | NUR ---
SHIFT SUMMARY PT TRANSFERED TO MEDICAL FLOOR FROM PCU THIS EVENING. PT IS A&O X4, DENIES SHORTNESS OF BREATH OR PAIN. LUNGS ARE CLEAR BUT DIMINISHED IN THE BASES. PT NOTED TO HAVE HYPERACTIVE BOWEL SOUNDS. BLE NOTED TO HAVE +2 EDEMA. PT DSG TO BLE ARE DRY AND INTACT. PT REMAINS IN DROPLET PERCAUTION FOR RINOVIRUS.
[2023-08-28 19:33] VITALS: BP 114/69
[2023-08-29 03:52] VITALS: BP 119/72
--- NOTE | 2023-08-29 06:42 | NUR ---
SHIFT SUMMARY: PATIENT ORIENTED BUT SLOW TO ANSWER. RT RECOMMENDED BUMPING OXYGEN LITERS UP TO 4 AFTER BREATHING TREATMENT. DROPLET PRECAUTIONS MAINTAINED. PATIENT SLEPT WELL THROUGH NIGHT.
[2023-08-29 07:59] VITALS: BP 123/77
[2023-08-29 15:55] VITALS: BP 124/62
--- NOTE | 2023-08-29 16:38 | NUR ---
SHIFT SUMMARY PT CONT LEVEL OF CARE WITH NO ACUTE CHANGES NOTED. PT CONT TO UTILIZE O2 AT 4L/NC FOR COMFORT. PT IS A&O X3 AND DENIES PAIN THIS SO FAR THIS SHIFT. PT CONT TO EAT VERY LITTLE EVEN WITH ENCOURAGEMENT. PT CONT TO WAIT ON HOSPICE PLACEMENT.
[2023-08-29 20:17] VITALS: BP 128/68
[2023-08-30 02:49] VITALS: BP 115/66
--- NOTE | 2023-08-30 05:58 | NUR ---
SHIFT SUMMARY NOC PT A/O X 3-4. FORGETFUL AT TIMES, BUT COOPERATIVE WITH CARE. VSS. NO ACUTE CHANGES TO REPORT. PT STILL ON 4L, BUT HFNC BECAUSE IT IS MORE COMFORTABLE IN NARES THAN STANDARD NC. PG IN BILATERAL UPPER ARMS THAT DO NOT DRAW. PUREWICK IN PLACE FOR INCONTINENCE. ON DROPLET ISOLATION FOR RSV. PT CURRENTLY AWAITING SNF/HOSPICE PLACEMENT. PT CURRENTLY RESTING WITH BED IN LOWEST POSITION, AND CALL LIGHT WITHIN REACH.
[2023-08-30 08:34] VITALS: BP 125/66
[2023-08-30 16:10] VITALS: BP 136/75
--- NOTE | 2023-08-30 16:25 | NUR ---
SHIFT SUMMARY PT IS A&O X4 PLEASANT AND FOLLOWS COMMANDS OF STAFF. PT CONT ON 4L/NC AND DENIES SOB AT THIS TIME. PT DID REQUEST TO TALK TO PALLATIVE CARE. PALLATIVE CARE NOTIFIED. PT CONT TO WAIT ON PLACEMENT OF SNF FACILTY.
[2023-08-30 19:48] VITALS: BP 121/63
[2023-08-31 02:40] VITALS: BP 113/78
--- NOTE | 2023-08-31 06:28 | NUR ---
SHIFT SUMMARY NOC PT A/O X 3-4. WITHDRAWN, BUT COOPERATIVE WITH CARE. VSS. NO ACUTE CHANGES TO REPORT. PT ON O2 4L/NC STILL. PUREWICK IN PLACE FOR INCONTINENCE. BILATERAL UPPER ARM POWERGLIDES.ON DROPLET ISOLATION FOR RSV. PT AWAITING PLACEMENT FOR HOSPICE CARE. PT CURRENTLY RESTING WITH BED IN LOWEST POSITION, AND CALL LIGHT WITHIN REACH.
[2023-08-31 08:44] VITALS: BP 126/95
[2023-08-31 15:10] VITALS: BP 117/93
--- NOTE | 2023-08-31 18:08 | NUR ---
WOUND DRESSINGS CHANGED. WOUND CLEANED AND DRESSINGS CHANGED. PATIENT HAS PAIN TO BILATERAL LOWER LEGS. PATIENT IS COOPERATIVE WITH DRESSING CHANGES AND TOLERATES WELL.
--- NOTE | 2023-08-31 18:43 | NUR ---
SHIFT SUMMARY. PATIENT IS A&OX3-4. PATIENT IS PLEASANT AND COOPERATIVE WITH CARE. PATIENT ACCEPTED AT SNF IN [facility]. PATIENTS DAUGHTER IN TODAY-TOOK PATIENTS PERSONAL BELONGINGS-LEFT BOOK, MINT CONTAINER, GLASSES AND BOOK. PATIENT HAD BED BATH TODAY, LINENS CHANGED. BED IS LOCKED IN THE LOWEST POSITION WITH CALL LIGHT IN REACH. CARE IS ONGOING.
[2023-08-31 19:43] VITALS: BP 121/65
[2023-08-31] MEDS ORDERED: Miconazole Nitrate 2% 85 GM PWD TOP PRN (21:00)
[2023-09-01 04:38] VITALS: BP 121/71
--- NOTE | 2023-09-01 05:08 | NUR ---
SHIFT SUMMARY NOC PT A/O X 3-4. FORGETFUL AND WITHDRAWN, BUT COOPERATIVE WITH CARE. VSS. NO ACUTE CHANGES TO REPORT. ON O2 4L/NC STILL. PUREWICK IN PLACE FOR COMFORT. BLE DRESSING CHANGED YESTERDAY PRIOR TO SHIFT CHANGE AND ARE C/D/I. PT WILL DISCHARGE TO [facility] IN [place] ON HOSPICE, WITH [facility] @ 1000 FOR TRANSPORT TO FACILITY. ON DROPLET ISOLATION FOR RSV. PT CURRENTLY RESTING WITH BED IN LOWEST POSITION, AND CALL LIGHT WITHIN REACH.
[2023-09-01 08:34] VITALS: BP 142/70
[2023-09-01] MEDS ORDERED: ELIQUIS5 M2 PO (09:35)
[2023-09-01] MEDS ORDERED: AMIODARONE HCL400 M2 PO (09:35)
[2023-09-01] MEDS ORDERED: JUVEN PACKET1 EAC3 (09:36)
[2023-09-01] MEDS ORDERED: METO50ER PO (09:37)
--- NOTE | 2023-09-01 10:13 | NUR ---
DISCHARGE NOTE PT TRANSFERRED TO [facility] IN [place], REPORT GIVEN TO AMMON AT THE FACILITY. PG'S REMOVED. BRIEF CHANGED PRIOR TO TRANSPORT. REPORT ALSO GIVEN TO EMS ALONG WITH THE PACKET WITH DISCHARGE INFORMATION.
== END 2023-09-01 10:04 | DRG 871 ==
LOC: ER 16:46 → ERHOLD 19:40 → MEDS 19:40 → PCU 19:40 → MEDS 08-28 15:27
PROVIDERS: Emergency Medicine; Family Medicine; Internal Medicine; Nurse Practitioner Acute Care; ADMIT Internal Medicine
PROC: 3E03329 Introduction of Other Anti-infective into Peripheral Vein, Percutaneous Approach (ICD-10-PCS; principal; 2023-08-22)
PROC: 0T9B70Z Drainage of Bladder with Drainage Device, Via Natural or Artificial Opening (ICD-10-PCS; 2023-08-22)
PROC: 30233J1 Transfusion of Nonautologous Serum Albumin into Peripheral Vein, Percutaneous Approach (ICD-10-PCS; 2023-08-22)
PROC: 5A09357 Assistance with Respiratory Ventilation, Less than 24 Consecutive Hours, Continuous Positive Airway Pressure (ICD-10-PCS; 2023-08-25)
DX: A41.01 Sepsis due to Methicillin susceptible Staphylococcus aureus (principal); I26.09 Other pulmonary embolism with acute cor pulmonale; J96.01 Acute respiratory failure with hypoxia; J15.211 Pneumonia due to Methicillin susceptible Staphylococcus aureus; L03.116 Cellulitis of left lower limb; L97.929 Non-pressure chronic ulcer of unspecified part of left lower leg with unspecified severity; L97.919 Non-pressure chronic ulcer of unspecified part of right lower leg with unspecified severity; N17.9 Acute kidney failure, unspecified; J44.0 Chronic obstructive pulmonary disease with (acute) lower respiratory infection; I13.0 Hypertensive heart and chronic kidney disease with heart failure and stage 1 through stage 4 chronic kidney disease, or unspecified chronic kidney disease; E87.1 Hypo-osmolality and hyponatremia; E87.20 Acidosis, unspecified; Z68.41 Body mass index [BMI] 40.0-44.9, adult; Z66 Do not resuscitate; Z51.5 Encounter for palliative care; R65.20 Severe sepsis without septic shock; F17.210 Nicotine dependence, cigarettes, uncomplicated; H91.90 Unspecified hearing loss, unspecified ear; E87.5 Hyperkalemia; E86.0 Dehydration; B97.89 Other viral agents as the cause of diseases classified elsewhere; B97.10 Unspecified enterovirus as the cause of diseases classified elsewhere; E11.65 Type 2 diabetes mellitus with hyperglycemia; I27.29 Other secondary pulmonary hypertension; E11.622 Type 2 diabetes mellitus with other skin ulcer; E11.22 Type 2 diabetes mellitus with diabetic chronic kidney disease; I50.810 Right heart failure, unspecified; N18.31 Chronic kidney disease, stage 3a; I48.91 Unspecified atrial fibrillation; E66.01 Morbid (severe) obesity due to excess calories; Z88.1 Allergy status to other antibiotic agents; Z88.5 Allergy status to narcotic agent; Z91.048 Other nonmedicinal substance allergy status; Z99.81 Dependence on supplemental oxygen
CPT/HCPCS: 0202U; 36415; 51702; 71045; 71260; 80048; 80053; 80069; 81001; 82272; 82550; 82803; 82947; 83036; 83605; 83735; 83880; 84145; 84439; 84443; 84481; 84484; 85014; 85018; 85025; 85520; 85610; 87040; 87070; 87075; 87086; 87205; 90471; 90715; 93005; 93010; 93306; 94640; 94660; 94760; 94762; 96360-59; 97110; 97162; 97530; 99285-25; A9270; J0282; J0612; J1644; J1815; J1956; J3010; J7030; J7060; J7120; P9047; Q9967